=== PATIENT | male | born 1975 | race Caucasian/White ===

== ENCOUNTER 2018-10-02 20:40 | Emergency (ER) | payer OTHER ==
[~2018-10-02] VITALS: Ht 175.3 cm; Wt 72.6 kg
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
[2018-10-02 20:55] VITALS: BP 117/80
[2018-10-02] MEDS ORDERED: LIDOCAINE 2%/EPI 1:100,000 20 ML VIAL. IJ ONE (21:00)
[2018-10-02] MEDS ORDERED: ACET500T68 PO (21:20)
[2018-10-02] MEDS ORDERED: BACI28.34 TP (21:20)
[2018-10-02] MEDS ORDERED: IBUP400T18 PO (21:20)
== END 2018-10-02 21:30 | disposition home or self-care (01) ==
LOC: ER 20:40
DX: S81.812A Laceration without foreign body, left lower leg, initial encounter (principal); W26.0XXA Contact with knife, initial encounter; Y93.89 Activity, other specified; Y92.89 Other specified places as the place of occurrence of the external cause; Y99.8 Other external cause status
CPT/HCPCS: 12001; 99283

== ENCOUNTER 2018-10-12 14:22 | Emergency (ER) | payer OTHER ==
[~2018-10-12] VITALS: Ht 175.3 cm; Wt 72.6 kg
[2018-10-12 14:22] VITALS: BP 114/75
[~2018-10-12 14:22] MED LIST: ACET500T68 PO; BACI28.34 TP; IBUP400T18 PO
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
== END 2018-10-12 15:10 | disposition home or self-care (01) ==
LOC: ER 14:22
DX: S81.811D Laceration without foreign body, right lower leg, subsequent encounter (principal); W26.0XXD Contact with knife, subsequent encounter
CPT/HCPCS: 99281

== ENCOUNTER 2018-12-12 10:14 | Emergency (ER) | payer OTHER ==
[~2018-12-12] VITALS: Ht 175.3 cm; Wt 78.0 kg
[2018-12-12 10:25] VITALS: BP 108/63
[2018-12-12] MEDS ORDERED: VALA10005 PO (10:34)
--- NOTE | 2018-12-12 10:34 | PHYS DOC ---
Past History Past Medical History: No Pertinent History Past Surgical History: Tonsillectomy Smoking: Non-smoker Alcohol Use: None Drug Use: None Adult General Chief Complaint Chief Complaint: BLISTER/COLD SORE HPI HPI 42-year-old male presents with report of recurrent cold sore to right lower lip. Reports started yesterday with some tingling and became small lesion this morning. Reports has used some [id number] Abreva. Reports on previous episodes patient has been prescribed Valtrex. Denies fever or chills. Denies other complaint. Review of Systems Review of Systems Constitutional: Denies fever or chills HENT: Denies nasal congestion or sore throat Respiratory: Denies cough or shortness of breath Integument: Denies rash; reports cold sore to right lower lip Complete systems were reviewed and found to be within normal limits, except as documented in this note. Current Medications Current Medications Current Medications Medications (Trade) Dose Ordered Sig/[facility] Start Time Stop Time Status Last Admin Dose Admin Dexamethasone (Decadron) 10 mg 1X ONCE 12/12/18 10:30 12/12/18 10:31 UNV Allergies Allergies Allergies Coded Allergies Type Severity Reaction Last Updated Verified No Known Drug Allergies 10/02/18 No Physical Exam Physical Exam Constitutional: Well developed, well nourished, no acute distress, non-toxic appearance HENT: Normocephalic, atraumatic, oropharynx moist Eyes: Conjunctiva normal, no discharge Neck: Normal range of motion, supple Skin: Warm, dry, no erythema, small herpes labialis noted to right lower lip Extremities: No tenderness, ROM intact, no edema Neurologic: Alert and oriented X 3, no focal deficits noted Psychologic: Affect normal, judgement normal Current Patient Data Vital Signs Vital Signs Date Time Temp Pulse Resp B/P (MAP) Pulse Ox O2 Delivery O2 Flow Rate FiO2 12/12/18 10:25 97.4 56 16 98 Room Air EKG EKG [] Radiology/Procedures Radiology/Procedures [] Course & Med Decision Making Course & Med Decision Making Patient presents with history of present illness and physical exam consistent for recurrent herpes labialis. Symptomatic steroid provided. Valtrex prescribed. Patient stable for discharge with outpatient follow-up with PCP. Discussed findings and plan with patient, who acknowledges understanding and agreement. Addy Disclaimer Dragon Disclaimer This electronic medical record was generated, in whole or in part, using a voice recognition dictation system. Departure Departure: Impression: Primary Impression: Herpes labialis Disposition: 01 HOME, SELF-CARE Condition: STABLE Referrals: GRISELDA MERIDA (PCP) Patient Instructions: Cold Sore, [id number] Scripts Valacyclovir Hcl (VALTREX) 1,000 Mg Tablet 2 TAB PO BID for Herpes Labialis for 1 Day, #4 TAB Prov: ERASMO DIAZ DO 12/12/18 ERASMO DIAZ DO Dec 12, 2018 10:34
[2018-12-12] MEDS ORDERED: DEXAMETHASONE 4 MG TABLET ONE (10:40)
[2018-12-12] MEDS ORDERED: DEXAMETHASONE 4 MG TABLET PO ONE (11:00)
== END 2018-12-12 10:45 | disposition home or self-care (01) ==
LOC: ER 10:14
DX: B00.1 Herpesviral vesicular dermatitis (principal)
CPT/HCPCS: 99283; J8540